=== PATIENT | female | born 1945 | race Caucasian/White ===

== ENCOUNTER 2017-04-08 14:00 | Inpatient (IN) | payer MEDICARE, MEDICAID ==
[~2017-04-08] VITALS: Ht 162.6 cm; Wt 52.6 kg
[~2017-04-08 14:00] MED LIST: AZAT50TA PO; BUPR-51 PO; CALC-15; CHOL20004; CIPR-262 PO; DICY20TA32 PO; DONE10TA11 PO; HYDR-3976 PO; NITR100C PO; OXYB5TAB11 PO; PROP10TA68 PO
--- NOTE | 2017-04-08 14:20 | NUR ---
PT BIBRA FROM SNF TO ER BED 13. HERE FOR DIZZINESS, NAUSEA X TODAY. PT FELL 2 DAYS AGO FACIAL HEMATOMA NOTED. PT IS AAO, STABLE VITALS. AWAITING MD HANSEN.
--- NOTE | 2017-04-08 14:59 | NUR ---
DR WARREN AT BEDSIDE FOR EVAL.
[2017-04-08] MEDS ORDERED: MECLIZINE HCL 25 MG TABLET ONE (15:25)
[2017-04-08] MEDS ORDERED: ONDANSETRON HCL/PF 4 MG/2 ML VIAL ONE ×2 (15:25→16:34)
[2017-04-08] MEDS ORDERED: TDAP [DIPH/PERTUSSIS/TET] 0.5 ML VIAL IM ONE ×2 (15:30→17:15)
[2017-04-08] MEDS ORDERED: ONDANSETRON HCL/PF - ER 4 MG/2 ML VIAL IV ONE ×2 (15:30→16:30)
[2017-04-08] MEDS ORDERED: MECLIZINE HCL 12.5 MG TABLET PO ONE (15:30)
--- NOTE | 2017-04-08 15:30 | NUR ---
PT TO RADIOLOGY FOR HEAD AND C SPINE CT SCAN VIA [facility].
[2017-04-08 15:34] LABS: BASOPHILS % (AUTO) 0.5 % (0.0-2.0); EOSINOPHILS % (AUTO) 0.1 % (0.0-6.0); HEMATOCRIT 37 % (33-45); HEMOGLOBIN 12.5 g/dL (11.5-14.8); LYMPHOCYTES # (AUTO) 1.6 /CMM (0.8-4.8); LYMPHOCYTES % (AUTO) 17.2 % (20.0-44.0); MEAN CORPUSCULAR HEMOGLOBIN 29 PG (26.0-33.0); MEAN CORPUSCULAR HGB CONC 34 g/dl (31.0-36.0); MEAN CORPUSCULAR VOLUME 85 fL (82-100); MONOCYTES # (AUTO) 0.6 /CMM (0.1-1.30); MONOCYTES % (AUTO) 6.3 % (2.0-12.0); NEUTROPHILS # (AUTO) 7.3 /CMM (1.8-8.9); NEUTROPHILS % (AUTO) 75.9 % (43.0-81.0); PLATELET COUNT (AUTO) 284 /CMM (150-450); RDW COEFFICIENT OF VARIATION 13.4 (11.5-15.0); RED BLOOD CELL COUNT(AUTO) 4.34 MIL/uL (4.0-5.2); WHITE BLOOD COUNT (AUTO) 9.5 K/uL (4.3-11.0)
--- NOTE | 2017-04-08 15:35 | NUR ---
PT REFUSING CT SCANS
[2017-04-08 15:40] LABS: CALCIUM, SERUM 6.6 mg/dL (8.5-10.1); CARBON DIOXIDE 29 mmol/L (21-32); CHLORIDE 99 mmol/L (98-107); CREATININE 0.9 mg/dL (0.6-1.3); GLUCOSE 133 mg/dL (74-106); SODIUM SERUM 139 mmol/L (136-145); UREA NITROGEN, BLOOD 7 mg/dL (7-18)
[2017-04-08 15:42] LABS: POTASSIUM 2.2 mmol/L (3.5-5.1)
[2017-04-08 15:46] LABS: INR 1.23 (0.85-1.15)
[2017-04-08] MEDS ORDERED: POTASSIUM CHLORIDE 20 MEQ TAB.PRT.SR PO ONE ×3 (16:00→22:15)
[2017-04-08] MEDS ORDERED: QUET25TA PO (16:14)
[2017-04-08] MEDS ORDERED: CHOL200026 PO (16:14)
[2017-04-08] MEDS ORDERED: PANT40TA4 PO (16:14)
[2017-04-08] MEDS ORDERED: ONDA4TAB5 PO (16:14)
[2017-04-08] MEDS ORDERED: MECL-102 PO (16:14)
[2017-04-08] MEDS ORDERED: MEMA28CA PO (16:14)
[2017-04-08] MEDS ORDERED: AMLO5TAB2 PO (16:14)
[2017-04-08] MEDS ORDERED: LOSA50TA21 PO (16:14)
[2017-04-08] MEDS ORDERED: POTA10CA43 PO (16:14)
[2017-04-08] MEDS ORDERED: Magnesium 1GM/D5W 100ML PREMIX 200 ML IV ONE (16:34)
--- NOTE | 2017-04-08 16:37 | NUR ---
CALLED NURSING SUP. FOR TELE BED
[2017-04-08] MEDS: Magnesium 1GM/D5W 100ML PREMIX 100 ML IV SCH ×4 (16:40→19:56)
--- NOTE | 2017-04-08 17:02 | NUR ---
CALLED DR.JOSEF WALTERS, TRANSFERRED CALL TO DR. WARREN
--- NOTE | 2017-04-08 17:04 | NUR ---
TELE [id number]
[2017-04-08] MEDS: POTASSIUM CL. PREMIX PERIPHER. 50 ML IV SCH ×4 (17:16→21:45)
--- NOTE | 2017-04-08 17:23 | NUR ---
REPORT GIVEN TO KAMILAH. PT AWAITING TRANSFER TO FLOOR.
[2017-04-08 18:00] VITALS: BP 123/79
--- NOTE | 2017-04-08 18:00 | NUR ---
RECEIVED PATIENT FROM ER IN STABLE CONDITION, VS WNL. PATIENT A/OX3. NO ACUTE DISTRESS, NO SOB NOTED. IV SITE ON RIGHT FOREARM AND RIGHT WRIST, INTACT AND PATENT, RUNNING MAGNESIUM AND POTASSIUM. KEPT PATIENT SAFE AND COMFORTABLE. BED IN LOW/LOCKED POSITION, SIDERAILS UPX2, SEMIFOWLERS, CALL LIGHT IN REACH. WILL CONTINUE TO MONITOR ACCORDINGLY.
[2017-04-08] MEDS ORDERED: Magnesium 1GM/D5W 100ML PREMIX 100 ML IV ONE (18:06)
--- NOTE | 2017-04-08 19:00 | NUR ---
RN CLOSING NOTES PATIENT RESTING IN BED. NO ACUTE DISTRESS, NO SOB NOTED. ALL NEEDS ATTENDED AND PROVIDED. KEPT PATIENT SAFE AND COMFORTABLE. BED IN LOW/LOCKED POSITION. SIDERAILS UPX2. CALL LIGHT IN REACH. ENDORSED TO NIGHT RN FOR MONICA.
--- NOTE | 2017-04-08 19:40 | NUR ---
CLERICAL SUPPORT OPENING NOTES ADMITTED 71 YO FEMALE PT ALERT, AWAKE, VERBALLY RESPONSIVE.ON ROOM AIR, RESPIRATIONS EVEN, UNLABORED,NO APPARENT DISTRESS NOTED. DENIES ANY PAIN OR DISCOMFORT AT THIS TIME. IV SITE RT FA INTACT, PATENT, RECEIVING MAGNESIUM AT THIS TIME.CALL LIGHT WITHIN REACH. BED LOCKED IN LOWEST POSITION.ATTENDED ALL NEEDS. WILL CONTINUE TO MONITOR ACCORDINGLY.
[2017-04-08 20:00] VITALS: BP_SYST 92; BP_SYST 98; BP_DIAS 46; BP_DIAS 66
[2017-04-08 20:11] VITALS: BP 123/79
[2017-04-08] MEDS ORDERED: Potassium Chloride 40 MEQ in IV NS 0.9% 1,000 ML IV SCH (21:30)
[2017-04-08] MEDS ORDERED: ONDANSETRON HCL/PF 4 MG/2 ML VIAL IV PRN (21:30)
[2017-04-08] MEDS ORDERED: ACETAMINOPHEN 650 MG/20.3 ML UDC NG PRN (21:30)
[2017-04-08] MEDS ORDERED: ZOLPIDEM TARTRATE 10 MG TABLET ONE (22:12)
[2017-04-08] MEDS ORDERED: QUETIAPINE FUMARATE 25 MG TABLET ONE (22:13)
[2017-04-08] MEDS ORDERED: MAGNESIUM OXIDE 400 MG TABLET ONE (22:14)
[2017-04-08] MEDS: MAGNESIUM OXIDE 400 MG TABLET PO SCH (22:19)
[2017-04-08] MEDS: POTASSIUM CHLORIDE 20 MEQ TAB.PRT.SR PO SCH (22:19)
[2017-04-08] MEDS: ZOLPIDEM TARTRATE 10 MG TABLET PO PRN (22:19)
[2017-04-08] MEDS: QUETIAPINE FUMARATE 25 MG TABLET PO SCH (22:19)
[2017-04-08] MEDS ORDERED: IV PREMIX NS +20MEQ KCL 1 L IV ONE (22:53)
[2017-04-08] MEDS ORDERED: Potassium Chloride 20 MEQ in IV NS 0.9% 1,000 ML IV PRN (23:00)
[2017-04-09] VITALS (7 sets, daily range): BP systolic 119–147; BP diastolic 68–88
[2017-04-09] MEDS ORDERED: HYDROCODONE/APAP 5/325MG 1 EACH TABLET ONE (01:33)
[2017-04-09] MEDS: HYDROCODONE/APAP 5/325MG 1 EACH TABLET PO PRN ×2 (01:42→23:10)
--- NOTE | 2017-04-09 06:44 | NUR ---
SHOCHET CLOSING NOTES PT IN BED, RESTING COMFORTABLY, ON ROOM AIR, NO RESPIRATORY DISTRESS NOTED. DENIES ANY PAIN OR DISCOMFORT AT THIS TIME. IV SITE INTACT,PATENT ON KCL 20 MEQ IN NS 0.95 AT 70 ML/HR. CALL LIGHT WITHIN REACH, BED LOCKED IN LOWEST POSITION.KEPT CLEAN AND COMFORTABLE, ATTENDED ALL NEEDS. WILL CONTINUE TO MONITOR ACCORDINGLY.
[2017-04-09 07:41] LABS: BASOPHILS % (AUTO) 0.3 % (0.0-2.0); EOSINOPHILS # (AUTO) 0.1 /CMM (0.0-0.7); EOSINOPHILS % (AUTO) 0.6 % (0.0-6.0); HEMATOCRIT 34 % (33-45); HEMOGLOBIN 11.9 g/dL (11.5-14.8); LYMPHOCYTES # (AUTO) 1.8 /CMM (0.8-4.8); MEAN CORPUSCULAR HEMOGLOBIN 30 PG (26.0-33.0); MEAN CORPUSCULAR HGB CONC 35 g/dl (31.0-36.0); MEAN CORPUSCULAR VOLUME 87 fL (82-100); MONOCYTES # (AUTO) 0.8 /CMM (0.1-1.30); MONOCYTES % (AUTO) 9.5 % (2.0-12.0); NEUTROPHILS # (AUTO) 6.2 /CMM (1.8-8.9); NEUTROPHILS % (AUTO) 69.6 % (43.0-81.0); PLATELET COUNT (AUTO) 243 /CMM (150-450); RDW COEFFICIENT OF VARIATION 15.1 (11.5-15.0); RED BLOOD CELL COUNT(AUTO) 3.91 MIL/uL (4.0-5.2); WHITE BLOOD COUNT (AUTO) 8.9 K/uL (4.3-11.0)
[2017-04-09 08:05] LABS: ALANINE AMINOTRANSFERASE 18 U/L (12-78); ALBUMIN 3.2 g/dL (3.4-5.0); ALKALINE PHOSPHATASE 43 U/L (46-116); ASPARTATE AMINOTRANSFERASE 15 U/L (15-37); BILIRUBIN,TOTAL 0.3 mg/dL (0.2-1.0); CALCIUM, SERUM 7.2 mg/dL (8.5-10.1); CARBON DIOXIDE 26 mmol/L (21-32); CHLORIDE 107 mmol/L (98-107); CREATININE 0.8 mg/dL (0.6-1.3); GLUCOSE 146 mg/dL (74-106); MAGNESIUM 1.5 mg/dL (1.8-2.4); POTASSIUM 3.1 mmol/L (3.5-5.1); SODIUM SERUM 143 mmol/L (136-145); TOTAL PROTEIN, SERUM 6.8 g/dL (6.4-8.2); UREA NITROGEN, BLOOD 5 mg/dL (7-18)
[2017-04-09 08:06] LABS: TROPONIN I < 0.017 ng/mL (0.00-0.056)
--- NOTE | 2017-04-09 08:30 | NUR ---
DR. Jonna WALTERS CALLED EARLY REGARDING LOW K AND MG LEVELS WELL DIARRHEA.ORDERS RECEIVED.
[2017-04-09] MEDS: ASPIRIN 81 MG TAB.CHEW PO SCH ×2 (09:00→11:08)
[2017-04-09] MEDS: POTASSIUM CHLORIDE 20 MEQ TAB.PRT.SR PO SCH ×2 (09:00→17:00)
[2017-04-09] MEDS: MAGNESIUM OXIDE 400 MG TABLET PO SCH ×2 (11:02→18:25)
[2017-04-09] MEDS: BUPROPION XL 150 MG TAB.ER.24 PO SCH (11:02)
[2017-04-09] MEDS: PANTOPRAZOLE 40 MG TABLET.DR PO SCH (11:02)
[2017-04-09] MEDS ORDERED: DIPHENOXYLATE HCL/ATROP SULF 1 UDTAB TABLET PO PRN (12:30)
[2017-04-09] MEDS: Magnesium 1GM/D5W 100ML PREMIX 100 ML IV SCH ×2 (13:02→14:44)
[2017-04-09] MEDS: POTASSIUM CL. PREMIX PERIPHER. 50 ML IV SCH ×4 (16:09→21:38)
--- NOTE | 2017-04-09 18:30 | NUR ---
HAD 4 DIARRHEA STOOLS WITH CROHN,S DZ.HAD LOMOTIL X1.KCL IV AND MG. GIVEN.PT. REFUSING ORAL K.
--- NOTE | 2017-04-09 19:30 | NUR ---
RN NOTE RECEIVED PATIENT IN BED, ALERT AND ORIENTED X 2, WITH FORGETFULNESS. DENIES PAIN, NO SOB, BREATHING EVEN AND UNLABORED, NO DIZZINESS AT THIS TIME. RECEIVING IV ORDERED VIA RFA PERIPHERAL LINE G#20. ALL PATIENT'S NEEDS ATTENDED TO AT THIS TIME. CALL LIGHT PLACED WITHIN EASY REACH. BED LOCKED IN PLACE, PLACED IN LOW POSITION. WILL CONTINUE TO MONITOR PATIENT.
[2017-04-09] MEDS ORDERED: POTASSIUM PHOSPHATE IV SCH (20:00)
[2017-04-09] MEDS ORDERED: D5W IV SCH (20:00)
--- NOTE | 2017-04-09 20:00 | NUR ---
RN NOTE NOTED IV PERIPHERAL LINE TO BE DISLODGED. STARTED A NEW IV PERIPHERAL LINE G#22 ON RFA, FLUSHING WELL WITH NS, PATENT AND INTACT. WILL CONTINUE TO MONITOR PATIENT.
[2017-04-09] MEDS: QUETIAPINE FUMARATE 25 MG TABLET PO SCH (21:33)
[2017-04-09] MEDS: POTASSIUM PHOSPHATE MM 7.5 MMOL in IV D5W 100 ML IV SCH (22:52)
[2017-04-10] VITALS: BP 144/77
[2017-04-10] MEDS: POTASSIUM PHOSPHATE MM 7.5 MMOL in IV D5W 100 ML IV SCH ×2
[2017-04-10] MEDS ORDERED: MECLIZINE HCL 12.5 MG TABLET ONE (01:53)
[2017-04-10] MEDS: MECLIZINE HCL 12.5 MG TABLET PO PRN ×3 (01:55→20:22)
[2017-04-10 04:00] VITALS: BP 137/80
--- NOTE | 2017-04-10 07:15 | NUR ---
RN CLOSING NOTE PATIENT IN BED, ALERT AND ORIENTED X 2-3, VERBALLY RESPONSIVE, NO SOB NOTED, BREATHING EVEN AND UNLABORED, NO C/O PAIN AT THIS TIME AND IS IN NO ACUTE DISTRESS. ALL PATIENT'S NEEDS ATTENDED TO, BED PLACED IN LOW POSITION AND LOCKED IN PLACE. KEPT PATIENT SAFE AND DRY, CLEAN AND COMFORTABLE. PATIENT UNDER TELEMETRY MONITORING WITH SR @ 74BPM. WILL ENDORSE TO AM SHIFT NURSE FOR CONTINUITY OF CARE.
--- NOTE | 2017-04-10 07:20 | NUR ---
RN NOTES PATIENT RESTING IN BED. NONLABORED BREATHING NOTED ON ROOM AIR, NO SIGNS OF DISTRESS NOTED, PATIENT DENIES PAIN AT THE MOMENT. IV SITE ON RIGHT FOREARM PATENT AND INTACT. PATIENT DENIES DIZZINESS AT THE MOMENT. PATIENT SINUS ON TELE MONITOR WITH HR IN THE 70S . BED IN LOWEST LOCKED POSITION. CALL LIGHT WITHIN REACH.WILL CONTINUE TO MONITOR
[2017-04-10 08:00] VITALS: BP 133/75
[2017-04-10] MEDS: PANTOPRAZOLE 40 MG TABLET.DR PO SCH (08:28)
[2017-04-10] MEDS: BUPROPION XL 150 MG TAB.ER.24 PO SCH (08:29)
[2017-04-10 08:50] LABS: BASOPHILS % (AUTO) 0.4 % (0.0-2.0); EOSINOPHILS # (AUTO) 0.1 /CMM (0.0-0.7); EOSINOPHILS % (AUTO) 0.7 % (0.0-6.0); HEMATOCRIT 35 % (33-45); HEMOGLOBIN 12.3 g/dL (11.5-14.8); LYMPHOCYTES # (AUTO) 1.9 /CMM (0.8-4.8); LYMPHOCYTES % (AUTO) 20.6 % (20.0-44.0); MEAN CORPUSCULAR HEMOGLOBIN 30 PG (26.0-33.0); MEAN CORPUSCULAR HGB CONC 35 g/dl (31.0-36.0); MEAN CORPUSCULAR VOLUME 88 fL (82-100); MONOCYTES # (AUTO) 0.8 /CMM (0.1-1.30); MONOCYTES % (AUTO) 9.1 % (2.0-12.0); NEUTROPHILS # (AUTO) 6.4 /CMM (1.8-8.9); NEUTROPHILS % (AUTO) 69.2 % (43.0-81.0); PLATELET COUNT (AUTO) 219 /CMM (150-450); RDW COEFFICIENT OF VARIATION 14.7 (11.5-15.0); RED BLOOD CELL COUNT(AUTO) 4.04 MIL/uL (4.0-5.2); WHITE BLOOD COUNT (AUTO) 9.2 K/uL (4.3-11.0)
[2017-04-10 09:03] LABS: CALCIUM, SERUM 7.4 mg/dL (8.5-10.1); CARBON DIOXIDE 28 mmol/L (21-32); CHLORIDE 100 mmol/L (98-107); CREATININE 0.7 mg/dL (0.6-1.3); GLUCOSE 116 mg/dL (74-106); MAGNESIUM 1.6 mg/dL (1.8-2.4); PHOSPHORUS 2.9 mg/dL (2.5-4.9); POTASSIUM 3.5 mmol/L (3.5-5.1); SODIUM SERUM 139 mmol/L (136-145); UREA NITROGEN, BLOOD 15 mg/dL (7-18)
[2017-04-10] MEDS: MAGNESIUM OXIDE 400 MG TABLET PO SCH ×2 (10:08→16:47)
[2017-04-10] MEDS: ASPIRIN 81 MG TAB.CHEW PO SCH (10:08)
[2017-04-10 12:00] VITALS: BP_SYST 107; BP_SYST 131; BP_SYST 136; BP_DIAS 69; BP_DIAS 79; BP_DIAS 84
--- NOTE | 2017-04-10 12:33 | NUR ---
RN NOTES: PATIENT REFUSED PO POTASSIUM MEDICATION, BENEFITS AND RISKS EXPLAINED TO PATIENT MULTIPLE TIMES. SPOKE TO PHARMACY ABOUT CHANGING THE MEDICATION TO POWDER FORM
[2017-04-10 16:00] VITALS: BP 125/76
[2017-04-10] MEDS: POTASSIUM CHLORIDE 20 MEQ POWDER PACKET PO SCH (16:42)
--- NOTE | 2017-04-10 16:42 | NUR ---
RN NOTES: PATIENT REFUSED POTASSIUM, SPIT OUT MEDICATION, MEDICATION WASTED, BENEFITS AND RISKS EXPLAINED TO PATIENT
--- NOTE | 2017-04-10 17:00 | NUR ---
RN NOTES: CONTACTED DR WALTERS AND LEFT A MESSAGE REGARDING MECLIZINE. AWAITING 'S CALL REGARDING MAGNESIUM REPLACEMENT WELL. PER JHON FROM [facility], DR WALTERS TO ORDER REPLACEMENT
--- NOTE | 2017-04-10 19:30 | NUR ---
RN NOTES PATIENT RESTING IN BED. PATIENT AOX2-3, NONLABORED BREATHING NOTED ON ROOM AIR, NO SIGNS OF DISTRESS NOTED, PATIENT DENIES PAIN AT THE MOMENT. IV SITE ON RIGHT FOREARM PATENT AND INTACT. PATIENT DENIES DIZZINESS AT THE MOMENT. PATIENT SINUS ON TELE MONITOR WITH HR IN THE 90S . BED IN LOWEST LOCKED POSITION. CALL LIGHT WITHIN REACH.ENDORSED TO NEXT SHIFT DURING SHIFT, NEURO CHECKS DONE Q 2 HOURS, NO CHANGE IN LOC, PATIENT PERRLA, NO ONSET OF WEAKNESS NOTED
--- NOTE | 2017-04-10 19:30 | NUR ---
RN NOTES PATIENT RESTING IN BED. NONLABORED BREATHING NOTED ON ROOM AIR, NO SIGNS OF DISTRESS NOTED, PATIENT DENIES PAIN AT THE MOMENT. IV SITE ON RIGHT FOREARM PATENT AND INTACT. PATIENT DENIES DIZZINESS AT THE MOMENT. PATIENT SINUS ON TELE MONITOR WITH HR IN THE 90S . BED IN LOWEST LOCKED POSITION. CALL LIGHT WITHIN REACH.ENDORSED TO NEXT SHIFT
[2017-04-10 20:00] VITALS: BP_SYST 110; BP_SYST 134; BP_SYST 140; BP_DIAS 64; BP_DIAS 70; BP_DIAS 81
--- NOTE | 2017-04-10 20:25 | NUR ---
TELE HOT DIP TINNING SUPERVISOR NOTES C/O DIZZINESS MECLIZINE PO GIVEN ORDERED. PT SEEN IN BED EATING WHILE LYING IN BED , SPOKE OT HER THAT SHE NEEDS TO BE SIT UP TO PREVENT FROM ASPIRATION AND CHOKING BUT PT STATED AND INSIST THAT'S THE WAY SHE'S EATING. NO N/V NOTED AT THIS TIME. SITTER AT THE BEDSIDE FOR SAFETY. WILL CONTINUE TO MONITOR.
[2017-04-10] MEDS: ZOLPIDEM TARTRATE 10 MG TABLET PO PRN (21:50)
[2017-04-10] MEDS: QUETIAPINE FUMARATE 25 MG TABLET PO SCH (21:51)
--- NOTE | 2017-04-10 21:55 | NUR ---
BLUE LINE TRIMMER/NOTES SEROQUEL GIVEN PO ORDERED , AND AMBIEN PER PT REQUESTED. SAFETY PRECAUTION , SITTER AT THE BEDSIDE.
--- NOTE | 2017-04-10 23:00 | NUR ---
CARE CENTER MANAGER/NOTES PT CALLED AND ASKING WHERE IS HER SLEEP MEDICATION., I SPOKE TO HER AND EXPLAINED TO HER THAT I ALREADY GIVEN WITH HER SEROQUEL AND I TOLD HER THAT I TOLD YOU WHAT KIND OF MEDICATION THAT I ADMINISTERED AND THE PURPOSE OF IT AND YOU UNDERSTOOD EARLIER. PT STARTED SCREAMING AND POINTING THAT I DID NOT GAVE IT TO HER I SHOWED THE WOW TO HER WHILE CHARGE NURSE GUSTAVO AT THE BEDSIDE WHAT TIME I SCANNED THE MEDICATION AND SITBETH IS THE WITNESS THAT I GAVE IT TO HER . SHE STOP TALKING THE LYING DOWN ON HER BED, KEPT HER WARM AND COMFORTABLE AT ALL TIMES. SITTER AT THE BEDSIDE.
--- NOTE | 2017-04-11 03:07 | NUR ---
ATLASSIAN ADMINISTRATOR/NOTES PT SLEEPING COMFORTABLY IN BED WITHOUT ANY ACUTE DISTRESS NOTED. KEPT HER WARM AND COMFORTABLE AT ALL TIME,.WILL CONTINUE T MONITOR.
--- NOTE | 2017-04-11 07:15 | NUR ---
SOLE MOLDER/OPENING NOTES 1:1 SITTER AT BEDSIDE. RECEIVED PT. IN BED A&OX2-3, PERIODS OF FORGETFULNESS. BREATHING UNLABORED, AND EVENLY ON ROOM AIR. NO S/S OF ACUTE DISTRESS. IV SITE ON RIGHT FOREARM INTACT AND PATENT. BED IS IN LOWEST AND LOCKED POSITION. 2 SIDE RAILS UP, AND INSTRUCTED PT. TO USE CALL LIGHT FOR ASSISTANCE. ALL NEEDS MET. WILL CONTINUE TO ASSESS AND MONITOR.
[2017-04-11] MEDS: PANTOPRAZOLE 40 MG TABLET.DR PO SCH (07:30)
--- NOTE | 2017-04-11 07:40 | NUR ---
TELE SUPERVISOR TUMBLING AND ROLLING CLOSING NOTES PT WOKE UP AND FEELINGS BETTER, SLEPT WELL AFTER SLEEP MEDS GIVEN LAST NIGHT. NO SIGNS OF ANY ACUTE DISTRESS NOTED AND ANY DISCOMFORT. ALL DUE MEDS GIVEN . TELE SR PER MONITOR. STABLE KANDACE THE NIGHT. VITAL SIGNS STABLE ALL NIGHT AND ALL NEEDS MET. MORNING CARE DONE WITH THE HELPED OF JAIDEN Rankin KEPT HER WARM AND COMFORTABLE AT ALL TIMES. PLACE CALL LIGHT AT REACH. SITTER AT THE BEDSIDE FOR SAFETY. ENDORSE TO AM NURSE FOR CONTINUITY OF CARE.
[2017-04-11 08:00] VITALS: BP 148/90
[2017-04-11] MEDS: Magnesium 1GM/D5W 100ML PREMIX 100 ML IV SCH ×2 (08:00→11:40)
[2017-04-11] MEDS ORDERED: IV NS 0.9% 500 ML BAG IV ONE (08:00)
[2017-04-11] MEDS ORDERED: IV NS 0.9% 500 ML IV ONE (08:30)
[2017-04-11] MEDS: BUPROPION XL 150 MG TAB.ER.24 PO SCH (09:00)
[2017-04-11] MEDS: POTASSIUM CL. PREMIX PERIPHER. 50 ML IV SCH ×3 (09:00→15:58)
[2017-04-11] MEDS: MAGNESIUM OXIDE 400 MG TABLET PO SCH ×2 (09:00→16:26)
[2017-04-11] MEDS: POTASSIUM CHLORIDE 20 MEQ POWDER PACKET PO SCH ×2 (09:00→16:24)
[2017-04-11] MEDS: ASPIRIN 81 MG TAB.CHEW PO SCH (09:00)
[2017-04-11 09:02] LABS: CALCIUM, SERUM 8.9 mg/dL (8.5-10.1); CARBON DIOXIDE 30 mmol/L (21-32); CHLORIDE 99 mmol/L (98-107); CREATININE 0.8 mg/dL (0.6-1.3); GLUCOSE 114 mg/dL (74-106); MAGNESIUM 1.5 mg/dL (1.8-2.4); PHOSPHORUS 2.6 mg/dL (2.5-4.9); SODIUM SERUM 138 mmol/L (136-145); UREA NITROGEN, BLOOD 14 mg/dL (7-18)
[2017-04-11 16:00] VITALS: BP 145/82
[2017-04-11] MEDS ORDERED: PNEUMOCOCCAL 23-VAL P-SAC VAC 0.5 ML VIAL SQ ONE (16:30)
[2017-04-11] MEDS ORDERED: FLU VACC QS 2017-18(36MOS+)/PF 0.5 ML DISP.SYRIN IM ONE (16:30)
[2017-04-11] MEDS: MECLIZINE HCL 12.5 MG TABLET PO PRN (18:15)
--- NOTE | 2017-04-11 18:30 | NUR ---
OCCUPATIONAL SAFETY SPECIALIST NOTES 1:1 SITTER AT BEDSIDE. PT. LEFT IN MEDICALLY STABLE CONDITION, A&OX2-3, WITH AMBULANCE CREW. BREATHING UNLABORED, AND EVENLY ON ROOM AIR. NO S/S OF ACUTE DISTRESS. DISCHARGE PACKET AND BELONGINGS LIST CHECKED AND SIGNED. REPORT TO GIVEN VIA PHONE TO PORSCHE AT [facility]. FLU AND PNA VACCINATIONS GIVEN BEFORE DISCHARGE. DISCHARGE PACKET AND REPORT WAS GIVEN TO AMBULANCE. ID BAND, AND IV WAS REMOVED WITHOUT COMPLICATIONS.
== END 2017-04-11 18:49 | DRG 312 ==
LOC: ER 14:03 → TELE 17:27 → MED 04-11 09:36
PROVIDERS: ADMIT Internal Medicine; ATTEND Internal Medicine
DX: I95.1 Orthostatic hypotension (principal); K50.90 Crohn's disease, unspecified, without complications; F03.90 Unspecified dementia, unspecified severity, without behavioral disturbance, psychotic disturbance, mood disturbance, and anxiety; E44.1 Mild protein-calorie malnutrition; E83.39 Other disorders of phosphorus metabolism; E83.42 Hypomagnesemia; Z68.1 Body mass index [BMI] 19.9 or less, adult; W19.XXXA Unspecified fall, initial encounter; E87.6 Hypokalemia; I10 Essential (primary) hypertension; I25.10 Atherosclerotic heart disease of native coronary artery without angina pectoris; G47.00 Insomnia, unspecified; F32.9 Major depressive disorder, single episode, unspecified; M50.10 Cervical disc disorder with radiculopathy, unspecified cervical region; S00.12XA Contusion of left eyelid and periocular area, initial encounter; Y93.9 Activity, unspecified; Y92.89 Other specified places as the place of occurrence of the external cause; J32.9 Chronic sinusitis, unspecified; F99 Mental disorder, not otherwise specified; E86.0 Dehydration
CPT/HCPCS: 36415; 70450-TC; 70486-TC; 72125-TC; 80048-TC; 80053-TC; 83735-TC; 84100-TC; 84484-TC; 85025-TC; 85730-TC; 87081-TC; 90715; 93880-TC; A4606; J2405; J3475; J3480; J3490; J7030; J7040; J7060; J8597; Q2036; Z7610

== ENCOUNTER 2017-10-18 09:15 | Inpatient (IN) | payer MEDICARE, MEDICAID ==
[~2017-10-18] VITALS: Ht 162.6 cm; Wt 56.8 kg
[~2017-10-18 09:15] MED LIST changes: +AMLO5TAB2 PO; -CALC-15; +CHOL200026 PO; -CHOL20004; -CIPR-262 PO; -DICY20TA32 PO; -HYDR-3976 PO; +LOSA50TA21 PO; +MECL-102 PO; +MEMA28CA PO; -NITR100C PO; +ONDA4TAB5 PO; +PANT40TA4 PO; +POTA10CA43 PO; -PROP10TA68 PO; +QUET25TA PO
--- NOTE | 2017-10-18 09:15 | NUR ---
NIVIA FROM [facility], C/O ABD PAIN SINCE 6AM, NO N/V/D, NAD NOTED, VSS, RESP EVEN AND UNLABORED, PT WAS PUT ON MONITOR, WAITING FOR MD HANSEN.
[2017-10-18] MEDS ORDERED: MEMA10TA PO (09:33)
[2017-10-18] MEDS ORDERED: LOSA50TA3 PO (09:33)
[2017-10-18] MEDS ORDERED: MAGN200T4 PO (09:33)
[2017-10-18] MEDS ORDERED: ZOLP10TA2 PO (09:33)
[2017-10-18] MEDS ORDERED: AZAT50TA18 PO (09:33)
[2017-10-18] MEDS ORDERED: ACET-868 PO (09:33)
[2017-10-18] MEDS ORDERED: LORA0.5T PO (09:33)
[2017-10-18] MEDS ORDERED: LOPE2TAB25 PO (09:33)
[2017-10-18] MEDS ORDERED: MESA800T5 PO (09:33)
[2017-10-18] MEDS ORDERED: ONDANSETRON HCL/PF 4 MG/2 ML VIAL ONE (09:56)
[2017-10-18] MEDS ORDERED: MORPHINE SULFATE INJ 4 MG/ML DISP.SYRIN ONE (09:57)
[2017-10-18] MEDS ORDERED: IV NS 0.9% 1,000 ML BAG IV ONE (10:00)
[2017-10-18] MEDS ORDERED: ONDANSETRON HCL/PF 4 MG/2 ML VIAL IVP ONE (10:00)
[2017-10-18] MEDS ORDERED: MORPHINE SULFATE INJ 2 MG/ML DISP.SYRIN IV ONE (10:00)
[2017-10-18 10:23] LABS: BASOPHILS # (AUTO) 0.1 /CMM (0.0-0.2); BASOPHILS % (AUTO) 0.6 % (0.0-2.0); EOSINOPHILS % (AUTO) 0.9 % (0.0-6.0); HEMATOCRIT 40 % (33-45); LYMPHOCYTES # (AUTO) 2.1 /CMM (0.8-4.8); LYMPHOCYTES % (AUTO) 24.4 % (20.0-44.0); MEAN CORPUSCULAR HEMOGLOBIN 28 PG (26.0-33.0); MEAN CORPUSCULAR HGB CONC 33 g/dl (31.0-36.0); MEAN CORPUSCULAR VOLUME 85 fL (82-100); MONOCYTES # (AUTO) 0.6 /CMM (0.1-1.30); MONOCYTES % (AUTO) 6.7 % (2.0-12.0); NEUTROPHILS # (AUTO) 5.7 /CMM (1.8-8.9); NEUTROPHILS % (AUTO) 67.4 % (43.0-81.0); PLATELET COUNT (AUTO) 440 /CMM (150-450); RDW COEFFICIENT OF VARIATION 13.7 (11.5-15.0); RED BLOOD CELL COUNT(AUTO) 4.72 MIL/uL (4.0-5.2); WHITE BLOOD COUNT (AUTO) 8.6 K/uL (4.3-11.0)
[2017-10-18 10:32] LABS: CALCIUM, SERUM 7.7 mg/dL (8.5-10.1); CARBON DIOXIDE 31 mmol/L (21-32); CHLORIDE 99 mmol/L (98-107); CREATININE 0.9 mg/dL (0.6-1.3); GLUCOSE 116 mg/dL (74-106); POTASSIUM 4.6 mmol/L (3.5-5.1); SODIUM SERUM 135 mmol/L (136-145); UREA NITROGEN, BLOOD 14 mg/dL (7-18)
[2017-10-18 10:38] LABS: ALANINE AMINOTRANSFERASE 19 U/L (12-78); ALBUMIN 3.8 g/dL (3.4-5.0); ALKALINE PHOSPHATASE 56 U/L (46-116); ASPARTATE AMINOTRANSFERASE 31 U/L (15-37); BILIRUBIN,DIRECT 0.1 mg/dL (0.0-0.2); BILIRUBIN,TOTAL 0.5 mg/dL (0.2-1.0); LIPASE 205 U/L (73-393); TOTAL PROTEIN, SERUM 8.5 g/dL (6.4-8.2)
--- NOTE | 2017-10-18 11:55 | NUR ---
PAGED DR. CECY WALTERS FOR ADMIT
--- NOTE | 2017-10-18 12:21 | NUR ---
SET UP BLS RIG WITH [facility] - TRIP #[id number] - AWAITING ETA
--- NOTE | 2017-10-18 13:11 | NUR ---
BLS RIG CANCELLED PATIENT REFUSED TRANSPORT BACK TO FACILITY
--- NOTE | 2017-10-18 13:12 | NUR ---
PAGED DR. CECY WALTERS
[2017-10-18 14:00] VITALS: BP 134/74
--- NOTE | 2017-10-18 14:00 | NUR ---
MS WINCH RUNNER NOTE PT ARRIVED TO MED/SURG UNIT VIA GURNEY IN STABLE CONDITION ACCOMPANIED BY 1 ER STAFF IN STABLE CONDITION. PT IS A/O X, AFEBRILE. RESPIRATIONS ARE EVEN AND UNLABORED, NOT IN ANY ACUTE DISTRESS NOTED. PUPILS ARE REACTIVE TO LIGHT. BILATERAL HAND SHAREPOINT WEB DEVELOPER ARE STRONG AND EQUAL. C/O PAIN 5/10 TO ABDOMEN BUT STATES SHE "DOESNT WANT ANYTHING RIGHT NOW." DENIES ANY SOB. C/O NAUSEA, NO VOMITING NOTED. IV TO LAC G20 INTACT, NO INFILTRATION NOTED. DRESSING KEPT CLEAN AND DRY. PT GOT OFF OF THE GURNEY AND TRANSFERRED SELF TO BED. NO DIZZINESS NOTED. ABDOMEN IS ROUND AND SOFT TO RUQ/LUQ AND FIRM UPON PALPATION TO LOWER ABDOMEN. DENIES ANY BLADDER DISCOMFORT. OLD INCISION SCAR NOTED TO TRANSVERSE ABDOMEN, NO S/SX OF INFECTION. SAFETY MEASURES ARE IN PLACE. INSTRUCTED PT TO USE CALL LIGHT WHEN ASSISTANCE IS NEEDED, CALL LIGHT IS LEFT WITHIN REACH. PAGED DR. WALTERS FOR ADMISSION, AWAITING A CALL BACK.
[2017-10-18] MEDS: ONDANSETRON HCL/PF 4 MG/2 ML VIAL IV PRN (15:46)
[2017-10-18] MEDS: IV NS 0.9% 1,000 ML BAG IV PRN (15:46)
[2017-10-18] MEDS: POTASSIUM CHLORIDE 10 MEQ TABLET.SA PO SCH ×2 (16:00→16:14)
--- NOTE | 2017-10-18 16:00 | NUR ---
MS RN NOTES DR. WALTERS CALLED BACK WITH ORDERS TO RESUME HOME MEDICATIONS, CHANGE ZOFRAN TO IV, NS @80ML/HR, SMALL BOWEL FOLLOW UP. ALL ORDERS READ BACK AND VERIFIED.
[2017-10-18] MEDS: MEMANTINE HCL 5 MG TABLET PO SCH ×2 (16:14→16:23)
[2017-10-18] MEDS: MECLIZINE HCL 25 MG TABLET PO SCH (16:14)
[2017-10-18] MEDS: CHOLECALCIFEROL 1,000 UNIT TABLET (VIT D3) PO SCH (16:14)
--- NOTE | 2017-10-18 16:15 | NUR ---
MS RN NOTES RADIOLOGY CAME BY TO P/U PT RE: SMALL BOWEL FOLLOW UP. PT STRONGLY REFUSED. EXPLAINED THE IMPORTANCE OF THE PROCEDURE X3, PT STILL NOTED WITH REFUSAL.
--- NOTE | 2017-10-18 16:23 | NUR ---
MS RN NOTES PATIENT REFUSED TO TAKE NAMENDA AND POTASSIUM. EXPLAINED THE RISKS AND BENEFITS OF BOTH MEDICATIONS X3, PATIENT STILL NOTED WITH REFUSAL. DR. WALTERS MADE AWARE. WILL CONTINUE TO MONITOR THROUGHOUT SHIFT.
[2017-10-18] MEDS: MESALAMINE 400 MG CAP PO SCH (18:05)
--- NOTE | 2017-10-18 18:34 | NUR ---
MS RN CLOSING NOTES NEEDS MET AND ANTICIPATED. PT APPEARS TO BE ALERT, HOWEVER CAN BE FORGETFUL. PT MAY BE NONCOMPLIANT AT TIMES EVEN WHEN EXPLAINING THE IMPORTANCE OF CARE GIVEN AND WHAT IS EXPECTED. PT IS A/O X3, AFEBRILE. RESPIRATIONS ARE EVEN AND UNLABORED, NOT IN ANY ACUTE DISTRESS NOTED. DENIES ANY SOB, PAIN. CONTINUES TO C/O NAUSEA, KEPT HOB SLIGHTLY ELEVATED TO WHERE THE PT FEELS COMFORTABLY. ENCOURAGED TO ELEVATE HOB 90 DEGREES TO PREVENT ANY ASPIRATION AND FROM VOMITING, PT STATED "TOO HIGH." SAFETY MEASURES ARE IN PLACE. CALL LIGHT IS LEFT WITHIN REACH. WILL ENDORSE TO NEXT SHIFT FOR CONTINUITY OF CARE.
--- NOTE | 2017-10-18 19:35 | NUR ---
MS RN OPENING NOTES RECEIVED PT RESTING IN BED IN SEMI RAPP POSITION. PT APPEARS TO BE ALERT, BUT FORGETFUL @ TIMES. PT MAY BE NONCOMPLIANT AT TIMES PER AM REPORT. PT IS A/O X 3, AFEBRILE. RESPIRATIONS ARE EVEN AND UNLABORED, NOT IN ANY ACUTE DISTRESS NOTED. DENIES ANY SOB, PAIN. PT FEELS COMFORTABLY SO FAR BUT HAS HX OF FREQUENT C/O NAUSEA. CONTINENT WITH STAND BY ASSIST. IV ACCESS TO LAC, INTACT PATENT. PT REFUSES IVF @ TIMES. ENCOURAGED & STARTED IVF @ THIS TIME FOR HYDRATION. PT IS NPO EXCEPT MEDS. SAFETY MEASURES ARE IN PLACE. CALL LIGHT IS LEFT WITHIN REACH. WILL MONITOR CLOSELY.
[2017-10-18 20:00] VITALS: BP 134/79
[2017-10-18] MEDS: QUETIAPINE FUMARATE 25 MG TABLET PO SCH (21:07)
[2017-10-18] MEDS: DONEPEZIL 5 MG TABLET PO SCH (21:08)
[2017-10-18] MEDS: AZATHIOPRINE 50 MG TABLET PO SCH (21:08)
[2017-10-18] MEDS: ACETAMINOPHEN 325 MG TABLET PO PRN (21:38)
[2017-10-18] MEDS: ZOLPIDEM TARTRATE 10 MG TABLET PO PRN (21:38)
--- NOTE | 2017-10-18 21:38 | NUR ---
PRN TYLENOL & AMBIEN GIVEN PT ASKED TO TAKE PAIN MEDICINE FOR ABD PAIN, INFORMED THE PT THAT THERE IS ONLY ORDER FOR TYLENOL, SHE AGREED TO TAKE IT, PT DID NOT WANT ME TO CALL MD @ THIS TIME, BUT IF SHE NEEDS MORE PAIN MED THEN PT WANTS ME TO CALL THE MD. PT ALSO WANTED TO TAKE AMBIEN, PRHardeep AMBIEN GIVEN ORDERED. WILL REASSESS FOR THE EFFECTIVENESS.
--- NOTE | 2017-10-18 22:45 | NUR ---
MS RN NOTE PT NOTED TO BE ASLEEP COMFORTABLY @ THIS TIME. NO S/S OF PAIN NOTED @ THIS TIME. IVF RUNNING ORDERED. PT WAS REFUSING TO CONTINUE IVF EARLIER BUT AGREED TO CONTINUE IVF AFTER SPENT TIME ENCOURAGING HER. EXPLAINED RISKS & BENEFITS WELL SINCE PT IS NPO & NEEDS IVF FOR HYDRATION.
[2017-10-19] MEDS: ACETAMINOPHEN 325 MG TABLET PO PRN (04:26)
[2017-10-19] MEDS: LORAZEPAM 0.5 MG TABLET PO PRN ×2 (04:27→19:50)
--- NOTE | 2017-10-19 06:19 | NUR ---
RN NOTES No significant change in condition. Patient slept comfortably. Change of staff at around 00:00, Report given by public administration professor Ady and previous RN. All nursing needs attended. will continue to monitor.
[2017-10-19] MEDS: ONDANSETRON HCL/PF 4 MG/2 ML VIAL IV PRN ×3 (07:10→22:01)
[2017-10-19] MEDS: IV NS 0.9% 1,000 ML BAG IV PRN (07:16)
--- NOTE | 2017-10-19 07:20 | NUR ---
MS RN OPENING NOTE RECEIVED BEDSIDE SBAR REPORT ON THE PATIENT. PATIENT IS A/O X3, AGITATED. PATIENT IS IN BED. BED IS LOCKED IN LOWEST POSITION, SIDE RAILS UP X2, BED ALARM IS ON. PATIENT REPORTS PAIN IN LOW BACK AND ABDOMEN. WILL REPORT TO DR WALTERS. PATIENT'S CHEST RISING EQUALLY/BILATERALLY. ALL NEEDS ARE MET. CALL LIGHT WITHIN REACH. EDUCATED THE PATIENT TO USE THE CALL LIGHT TO CALL FOR ASSISTANCE AND PATIENT VERBALIZED UNDERSTANDING. WILL CONTINUE TO ASSESS/MONITOR THROUGHOUT THE SHIFT.
[2017-10-19 07:33] LABS: CALCIUM, SERUM 7.1 mg/dL (8.5-10.1); CARBON DIOXIDE 26 mmol/L (21-32); CHLORIDE 102 mmol/L (98-107); CREATININE 0.9 mg/dL (0.6-1.3); GLUCOSE 109 mg/dL (74-106); POTASSIUM 3.8 mmol/L (3.5-5.1); SODIUM SERUM 140 mmol/L (136-145); UREA NITROGEN, BLOOD 11 mg/dL (7-18)
[2017-10-19 07:39] LABS: ALANINE AMINOTRANSFERASE 19 U/L (12-78); ALBUMIN 3.3 g/dL (3.4-5.0); ALKALINE PHOSPHATASE 44 U/L (46-116); ASPARTATE AMINOTRANSFERASE 20 U/L (15-37); BILIRUBIN,TOTAL 0.5 mg/dL (0.2-1.0); TOTAL PROTEIN, SERUM 7.2 g/dL (6.4-8.2)
[2017-10-19 07:41] LABS: MAGNESIUM 0.7 mg/dL (1.8-2.4)
[2017-10-19 07:42] LABS: BASOPHILS % (AUTO) 0.3 % (0.0-2.0); EOSINOPHILS % (AUTO) 1.1 % (0.0-6.0); HEMATOCRIT 34 % (33-45); HEMOGLOBIN 11.4 g/dL (11.5-14.8); LYMPHOCYTES # (AUTO) 1.7 /CMM (0.8-4.8); LYMPHOCYTES % (AUTO) 26.3 % (20.0-44.0); MEAN CORPUSCULAR HEMOGLOBIN 29 PG (26.0-33.0); MEAN CORPUSCULAR HGB CONC 34 g/dl (31.0-36.0); MEAN CORPUSCULAR VOLUME 87 fL (82-100); MONOCYTES # (AUTO) 0.5 /CMM (0.1-1.30); MONOCYTES % (AUTO) 7.8 % (2.0-12.0); NEUTROPHILS # (AUTO) 4.1 /CMM (1.8-8.9); NEUTROPHILS % (AUTO) 64.5 % (43.0-81.0); PLATELET COUNT (AUTO) 313 /CMM (150-450); RDW COEFFICIENT OF VARIATION 14.3 (11.5-15.0); RED BLOOD CELL COUNT(AUTO) 3.87 MIL/uL (4.0-5.2); WHITE BLOOD COUNT (AUTO) 6.3 K/uL (4.3-11.0)
--- NOTE | 2017-10-19 07:48 | NUR ---
RECEIVED PHONE CALL FROM THE LAB REPORTING CRITICAL MAGNESIUM LEVEL OF 0.7. CALLED DR WALTERS. RECEIVED A TELEPHONE ORDER FOR MAGNESIUM REPLACEMENT. RN REPORTED PATIENT COMPLAINS OF PAIN. DR WALTERS ORDERED MORPHINE 2MG Q4HRS PRN PAIN. ORDER READ BACK AND VERIFIED. WILL FOLLOW ORDER RECEIVED.
[2017-10-19 08:00] VITALS: BP 132/81
[2017-10-19] MEDS ORDERED: IV NS 0.9% 1,000 ML IV PRN (08:30)
--- NOTE | 2017-10-19 09:12 | NUR ---
PATIENT IS BEING TAKEN FOR BOWEL FOLLOW THROUGH TEST. WILL ADMINISTER MEDICATIONS AFTER THE TEST PER PATIENT'S REQUEST.
[2017-10-19] MEDS ORDERED: DIATR MEGLU/DIATRIZOATE SODIUM 120 ML BOTTLE (GASTROGRAPHIN) ONE (09:25)
--- NOTE | 2017-10-19 09:25 | NUR ---
PATIENT WAS PICKED UP BY X-RAY TECH VIA WHEELCHAIR
--- NOTE | 2017-10-19 10:55 | NUR ---
PATIENT IS IN X-RAY. X-RAY TECH CALLED AND REPORTED PATIENT PRESENTS WITH NAUSEA. WILL ADMINISTER ZOFRAN PRESCRIBED.
--- NOTE | 2017-10-19 10:58 | NUR ---
PATIENT BACK TO THE FLOOR. ZOFRAN ADMINISTERED
[2017-10-19] MEDS: CHOLECALCIFEROL 1,000 UNIT TABLET (VIT D3) PO SCH (11:12)
[2017-10-19] MEDS: LOSARTAN POTASSIUM 50 MG TABLET PO SCH (11:13)
[2017-10-19] MEDS: MAGNESIUM OXIDE 400 MG TABLET PO SCH ×3 (11:13→17:13)
[2017-10-19] MEDS: MEMANTINE HCL 5 MG TABLET PO SCH ×2 (11:14→17:14)
[2017-10-19] MEDS: PANTOPRAZOLE 40 MG TABLET.DR PO SCH (11:14)
[2017-10-19] MEDS: MECLIZINE HCL 25 MG TABLET PO SCH ×3 (11:14→16:06)
[2017-10-19] MEDS: POTASSIUM CHLORIDE 10 MEQ TABLET.SA PO SCH (11:15)
[2017-10-19] MEDS: AMLODIPINE BESYLATE 5 MG TABLET PO SCH (11:15)
[2017-10-19] MEDS: BUPROPION XL 150 MG TAB.ER.24 PO SCH (11:16)
[2017-10-19] MEDS: DONEPEZIL 5 MG TABLET PO SCH ×2 (11:16→21:08)
[2017-10-19] MEDS: MESALAMINE 400 MG CAP PO SCH ×3 (11:38→17:14)
[2017-10-19] MEDS: Magnesium 1GM/D5W 100ML PREMIX 100 ML IV SCH ×4 (11:41→19:44)
[2017-10-19] MEDS: MORPHINE SULFATE INJ 2 MG/ML DISP.SYRIN IV PRN (11:46)
--- NOTE | 2017-10-19 11:47 | NUR ---
PATIENT COMPLAINED OF SEVERE PAIN IN LOWER BACK AND ABDOMEN THAT IS RADIATING TO HER GLUTEAL MUSCLES. MORPHINE ADMINISTERED PRESCRIBED.
[2017-10-19] MEDS: LOPERAMIDE HCL (2 MG CAP) 2 MG CAPSULE PO PRN ×2 (16:07→19:20)
[2017-10-19 16:11] VITALS: BP 125/69
--- NOTE | 2017-10-19 16:21 | NUR ---
ENDORSED TO [place] FOR MONICA
--- NOTE | 2017-10-19 16:30 | NUR ---
received pt. very verbal and accusatory,states not happy about her diarrhea and diet,wants more immodium and solid food.informed pt. that dr. kelly would be in soon.
--- NOTE | 2017-10-19 17:30 | NUR ---
dr. urban kelly here and soft diet ordered and rifampin ordered.still wth mg replacement infusing as iv disconnected freq. for bathroom use.
--- NOTE | 2017-10-19 18:40 | NUR ---
rotational moulding operator ana laura jameson.
[2017-10-19] MEDS: RIFAXIMIN 550 MG TABLET PO SCH (18:54)
[2017-10-19 20:00] VITALS: BP_SYST 122; BP_SYST 131; BP_DIAS 56; BP_DIAS 68
--- NOTE | 2017-10-19 20:00 | NUR ---
MS/RN OPENING NOTES PATIENT OBSERVE UNABLE TO RELAX, VERBALIZED NEEDS, AND REPORTED IMMODIUM IS NEEDED IN TIMELY MANNER DUE TO CROHN, COMPLAINING OF ABDOMINAL PAIN, AND SOME DISCOMFORT, PATIENT REQUESTED TO HAVE SOME JELLO AND LIZA CRACKERS, ABLE TO TOLERTAE, WILL MONITOR, RECEIVED REPORT OF PATIENT, WILL MONITOR AND PROVIDE CARE. CALL LIGHTS WITHIN REACH, BED IN LOCK POSITION,
--- NOTE | 2017-10-19 20:32 | NUR ---
MS/RN OPEN NOTES PATIENT REPORTED ABDOMINAL PAIN,MOANING AND GUARDING , WILL MONITOR PAIN RELIEF AFTER
[2017-10-19] MEDS: QUETIAPINE FUMARATE 25 MG TABLET PO SCH (21:08)
[2017-10-19] MEDS: AZATHIOPRINE 50 MG TABLET PO SCH (21:08)
[2017-10-19] MEDS: ZOLPIDEM TARTRATE 10 MG TABLET PO PRN (21:50)
--- NOTE | 2017-10-19 21:52 | NUR ---
ms/rn notes as needed ambien to help patient sleep was requested.
[2017-10-20] MEDS: LOPERAMIDE HCL (2 MG CAP) 2 MG CAPSULE PO PRN ×4 (00:23→20:33)
--- NOTE | 2017-10-20 06:32 | NUR ---
325-2 MS/RN NOTES PATIENT ALERT, ORIENTED, ABLE TO SLEEP DURING THE NIGHT WITH INTERMITTEDNT NEED TO GO TO BATHROOM DUE TO BM, NEEDED IMMODIUM GIVEN TOLERATED BY PATIENT,PROVIDED FLUIDS,WILL MONITOR FOR ANY CHANGES AND NEED OF PAIN MED, WILL ENDORSE TO AM RN FOR MONICA.
[2017-10-20 07:33] LABS: BASOPHILS % (AUTO) 0.2 % (0.0-2.0); EOSINOPHILS % (AUTO) 1.7 % (0.0-6.0); HEMATOCRIT 35 % (33-45); HEMOGLOBIN 11.6 g/dL (11.5-14.8); LYMPHOCYTES # (AUTO) 1.5 /CMM (0.8-4.8); LYMPHOCYTES % (AUTO) 28.5 % (20.0-44.0); MEAN CORPUSCULAR HEMOGLOBIN 29 PG (26.0-33.0); MEAN CORPUSCULAR HGB CONC 33 g/dl (31.0-36.0); MEAN CORPUSCULAR VOLUME 88 fL (82-100); MONOCYTES # (AUTO) 0.4 /CMM (0.1-1.30); MONOCYTES % (AUTO) 8.4 % (2.0-12.0); NEUTROPHILS # (AUTO) 3.2 /CMM (1.8-8.9); NEUTROPHILS % (AUTO) 61.2 % (43.0-81.0); PLATELET COUNT (AUTO) 338 /CMM (150-450); RDW COEFFICIENT OF VARIATION 14.5 (11.5-15.0); RED BLOOD CELL COUNT(AUTO) 3.98 MIL/uL (4.0-5.2); WHITE BLOOD COUNT (AUTO) 5.3 K/uL (4.3-11.0)
--- NOTE | 2017-10-20 07:45 | NUR ---
MS RN OPENING NOTE RECEIVED PATIENT IN BED, SLEEPING, EASILY AROUSED WITH VERBAL STIMULI, ORIENTED X3. ON ROOM AIR TOLERATING WELL. RESPIRATIONS EVEN AND UNLABORED. IN NO APPARENT DISTRESS OR DISCOMFORT AT THIS TIME. ABLE TO COMMUNICATE NEEDS. PATIENT WITH BRP. LEFT AC 20G IVC IN PLACE, PATIENT REFUSES FLUIDS. DENIES PAIN AND SOB. KEPT CLEAN AND COMFORTABLE, ALL NEEDS ATTENDED, BED IN LOW LOCKED POSITION, SIDE RAILS UP X2, CALL LIGHT WITHIN EASY REACH. WILL CONTINUE TO MONITOR.
[2017-10-20 07:47] LABS: ALANINE AMINOTRANSFERASE 18 U/L (12-78); ALBUMIN 3.3 g/dL (3.4-5.0); ALKALINE PHOSPHATASE 51 U/L (46-116); ASPARTATE AMINOTRANSFERASE 16 U/L (15-37); BILIRUBIN,TOTAL 0.3 mg/dL (0.2-1.0); CALCIUM, SERUM 7.9 mg/dL (8.5-10.1); CARBON DIOXIDE 28 mmol/L (21-32); CHLORIDE 102 mmol/L (98-107); CREATININE 0.9 mg/dL (0.6-1.3); GLUCOSE 139 mg/dL (74-106); MAGNESIUM 1.6 mg/dL (1.8-2.4); POTASSIUM 3.1 mmol/L (3.5-5.1); SODIUM SERUM 139 mmol/L (136-145); TOTAL PROTEIN, SERUM 7.3 g/dL (6.4-8.2); UREA NITROGEN, BLOOD 11 mg/dL (7-18)
[2017-10-20 08:00] VITALS: BP 144/82
[2017-10-20] MEDS: MAGNESIUM OXIDE 400 MG TABLET PO SCH ×3 (08:53→17:08)
[2017-10-20] MEDS: MESALAMINE 400 MG CAP PO SCH ×3 (08:53→17:08)
[2017-10-20] MEDS: POTASSIUM CHLORIDE 10 MEQ TABLET.SA PO SCH (08:54)
[2017-10-20] MEDS: LORAZEPAM 0.5 MG TABLET PO PRN (08:54)
[2017-10-20] MEDS: MECLIZINE HCL 25 MG TABLET PO SCH ×3 (08:54→17:08)
[2017-10-20] MEDS: BUPROPION XL 150 MG TAB.ER.24 PO SCH (08:54)
[2017-10-20] MEDS: LOSARTAN POTASSIUM 50 MG TABLET PO SCH (08:54)
[2017-10-20] MEDS: RIFAXIMIN 550 MG TABLET PO SCH ×2 (08:54→17:08)
[2017-10-20] MEDS: CHOLECALCIFEROL 1,000 UNIT TABLET (VIT D3) PO SCH (08:54)
[2017-10-20] MEDS: AMLODIPINE BESYLATE 5 MG TABLET PO SCH (08:54)
[2017-10-20] MEDS: MEMANTINE HCL 5 MG TABLET PO SCH ×2 (08:55→17:00)
[2017-10-20] MEDS: PANTOPRAZOLE 40 MG TABLET.DR PO SCH (08:56)
[2017-10-20] MEDS: MORPHINE SULFATE INJ 2 MG/ML DISP.SYRIN IV PRN ×3 (13:35→20:40)
[2017-10-20 16:00] VITALS: BP 116/53
[2017-10-20] MEDS: ACETAMINOPHEN 325 MG TABLET PO PRN (17:08)
--- NOTE | 2017-10-20 18:21 | NUR ---
MS RN CLOSING NOTE PATIENT IN BED, ALERT ORIENTED X3. ON ROOM AIR TOLERATING WELL. RESPIRATIONS EVEN AND UNLABORED. IN NO APPARENT DISTRESS OR DISCOMFORT AT THIS TIME. ABLE TO COMMUNICATE NEEDS. PATIENT WITH BRP. LEFT AC 20G IVC IN PLACE, PATENT AND INTACT. PATIENT REFUSES FLUIDS. DENIES PAIN AND SOB. KEPT CLEAN AND COMFORTABLE, ALL NEEDS ATTENDED, BED IN LOW LOCKED POSITION, SIDE RAILS UP X2, CALL LIGHT WITHIN EASY REACH. WILL ENDORSE TO PM NURSE FOR MONICA.
--- NOTE | 2017-10-20 19:31 | NUR ---
MS/RN OPENING NOTES' PATIENT IN BED, RESTING COMFORTABLY IN BED, RESPIRATIONS EVEN AND UNLABORED. VERBALIZE NEEDS AT ALL TIMES, CALL LIGHTS WITHIN REACH, BED IN LOCK POSITION, WILL MONITOR FOR ANY CONCERNS, CALL LIGHTS WITHIN REACH, BED IN LOCK POSITION WILL MONITOR.
[2017-10-20 19:55] VITALS: BP 113/72
[2017-10-20 20:10] VITALS: BP 113/72
--- NOTE | 2017-10-20 20:36 | NUR ---
ms/rn notes PATIENT VERBALIZED THE NEED FOR IMMODIUM NEEDED FORDIARRHEA/CROHNS DISEASE, AND OBSERVE GRIMACE, GUARDING AND REPORTED EXTREME PAIN IN ABDOMEN. WILL ADMINISTER IVP MORPHINE 2MG ORDERED FOR SEVERE PAIN.
[2017-10-20] MEDS: AZATHIOPRINE 50 MG TABLET PO SCH (21:04)
[2017-10-20] MEDS: DONEPEZIL 5 MG TABLET PO SCH (21:04)
[2017-10-20] MEDS: ZOLPIDEM TARTRATE 10 MG TABLET PO PRN (21:04)
[2017-10-20] MEDS: QUETIAPINE FUMARATE 25 MG TABLET PO SCH (21:04)
[2017-10-20] MEDS ORDERED: POTASSIUM CHLORIDE 20 MEQ TAB.PRT.SR PO ONE (22:00)
[2017-10-20] MEDS: Magnesium 1GM/D5W 100ML PREMIX 100 ML IV SCH ×2 (22:11→22:30)
--- NOTE | 2017-10-20 22:31 | NUR ---
MS/RN NOTES DR WALTERS WAS CONTACTED REGARDING PATIENT REFUSAL TO HAVE IV REINSERTED AND UNABLE TO ADMINISTER IV MAGNESIUM. MD MADE AWARE. NO OTHER ORDER BY .
[2017-10-20] MEDS: DICYCLOMINE HCL 10 MG CAPSULE PO SCH (23:58)
[2017-10-21] MEDS: MORPHINE SULFATE INJ 2 MG/ML DISP.SYRIN IV PRN ×3 (02:48→13:06)
[2017-10-21] MEDS: ONDANSETRON HCL/PF 4 MG/2 ML VIAL IV PRN ×3 (02:58→16:14)
[2017-10-21] MEDS: Magnesium 1GM/D5W 100ML PREMIX 100 ML IV SCH ×2 (03:35→04:32)
--- NOTE | 2017-10-21 03:42 | NUR ---
MS/RN NOTES PATIETN AGREED TO HAVE IV FLUIDS AND PER MD ORDER FOR MAGNESIUM IV, REPORTED N/V AND PAIN. AT THIS TIME, HAVING INABILITY TO RELAX, DR WALTERS CAME TO SEE THE PATIENT, DISCUSSED PLAN FOR DISCHARGE ONCE STABLE.
[2017-10-21] MEDS: LORAZEPAM 0.5 MG TABLET PO PRN (03:47)
--- NOTE | 2017-10-21 03:57 | NUR ---
MS/RN NOTES PATIENT HAD ONE EPISODE OF VOMITING, ZOFRAN WAS GIVEN PRIOR
[2017-10-21] MEDS ORDERED: IV NS 0.9% 1,000 ML IV PRN ×2 (05:00)
[2017-10-21] MEDS: DICYCLOMINE HCL 10 MG CAPSULE PO SCH ×2 (07:07→11:55)
--- NOTE | 2017-10-21 07:15 | NUR ---
MS RN OPENING NOTE RECEIVED PATIENT IN BED, SLEEPING, EASILY AROUSED WITH VERBAL STIMULI, ORIENTED X3. ON ROOM AIR TOLERATING WELL. RESPIRATIONS EVEN AND UNLABORED. IN NO APPARENT DISTRESS OR DISCOMFORT AT THIS TIME. ABLE TO COMMUNICATE NEEDS. PATIENT WITH BRP. RIGHT FOREARM 22G IVC IN PLACE WITH FLUIDS RUNNING AT 80ML/HR. DENIES PAIN AND SOB. KEPT CLEAN AND COMFORTABLE, ALL NEEDS ATTENDED, BED IN LOW LOCKED POSITION, SIDE RAILS UP X2, CALL LIGHT WITHIN EASY REACH. WILL CONTINUE TO MONITOR.
--- NOTE | 2017-10-21 07:28 | NUR ---
MS/RN NOTES REPORT GIVEN TO AM RN FOR MONICA, PATIENT RESTING COMFORTABLY, REPORTED STILL IN PAIN W/ N/V EPISODE, DISCUSSED CARE WITH AM RN, PATIENT CALL LIGHTS WITHIN REACH, BED IN LOCK POSITION, HAD BENTYL ORDER BY DR BUENO, WILL MONITOR FOR ANY CHANGES.ABLE TO VERBALIZE NEEDS, HAD BEHAVIOR , UNABLE TO RELAX AND
[2017-10-21 08:00] VITALS: BP 133/67
[2017-10-21] MEDS: PANTOPRAZOLE 40 MG TABLET.DR PO SCH (08:30)
[2017-10-21] MEDS: MESALAMINE 400 MG CAP PO SCH ×3 (08:34→16:15)
[2017-10-21] MEDS: MAGNESIUM OXIDE 400 MG TABLET PO SCH ×3 (08:35→16:14)
[2017-10-21] MEDS: MECLIZINE HCL 25 MG TABLET PO SCH ×3 (08:35→16:15)
[2017-10-21] MEDS: AMLODIPINE BESYLATE 5 MG TABLET PO SCH (08:35)
[2017-10-21] MEDS: RIFAXIMIN 550 MG TABLET PO SCH ×2 (08:36→16:14)
[2017-10-21] MEDS: LOSARTAN POTASSIUM 50 MG TABLET PO SCH (08:36)
[2017-10-21] MEDS: BUPROPION XL 150 MG TAB.ER.24 PO SCH (08:36)
[2017-10-21] MEDS: POTASSIUM CHLORIDE 10 MEQ TABLET.SA PO SCH (08:36)
[2017-10-21] MEDS: CHOLECALCIFEROL 1,000 UNIT TABLET (VIT D3) PO SCH (08:36)
[2017-10-21] MEDS: MEMANTINE HCL 5 MG TABLET PO SCH ×2 (08:37→16:15)
[2017-10-21] MEDS: LOPERAMIDE HCL (2 MG CAP) 2 MG CAPSULE PO PRN (08:37)
[2017-10-21 16:00] VITALS: BP 144/80
--- NOTE | 2017-10-21 17:00 | NUR ---
MS SAMPLE TAKER OPERATOR NOTE DISCHARGE ORDER RECEIVED FROM DR. WALTERS. PATIENT IS GOING BACK TO [facility] VIA AMBULANCE. PATIENT IS MEDICALLY CLEARED, STABLE, VITAL SIGNS STABLE BP 143/80, HR 66, O2SAT 96%, RR 20. ALERT ORIENTED X3. IN NO DISTRESS OR DISCOMFORT AT THIS TIME. ALL DUE MEDICATIONS GIVEN. PRN ZOFRAN WAS GIVEN PRIOR TO DISCHARGE. DISCHARGE INSTRUCTIONS PREPARED VIA [employer]. EDUCATION PROVIDED REGARDING DOCTOR'S INSTRUCTIONS, CURRENT HEALTH CONDITION AND DIAGNOSIS, NEW AND OLD MEDICATIONS. SKIN ASSESSED NO NEW IMPAIRMENTS OBSERVED, PHOTOS TAKEN PLACED IN CHART. VALUABLES CHECKED AND ACCOUNTED FOR . DISCHARGE PAPERWORK SIGNED. IVC REMOVED, TIP INTACT. ID BAND REMOVED. PATIENT LEFT THE FACILITY VIA AMBULANCE AT [id number].
== END 2017-10-21 17:00 | DRG 386 ==
LOC: ER 09:15 → MED 13:39
PROVIDERS: ADMIT Internal Medicine; ATTEND Internal Medicine
DX: K50.012 Crohn's disease of small intestine with intestinal obstruction (principal); E87.1 Hypo-osmolality and hyponatremia; E83.42 Hypomagnesemia; E87.6 Hypokalemia; E83.51 Hypocalcemia; E88.09 Other disorders of plasma-protein metabolism, not elsewhere classified; I10 Essential (primary) hypertension; G89.4 Chronic pain syndrome; F41.9 Anxiety disorder, unspecified; F17.200 Nicotine dependence, unspecified, uncomplicated; F03.90 Unspecified dementia, unspecified severity, without behavioral disturbance, psychotic disturbance, mood disturbance, and anxiety; Z98.1 Arthrodesis status; Z87.440 Personal history of urinary (tract) infections; K21.9 Gastro-esophageal reflux disease without esophagitis; I25.10 Atherosclerotic heart disease of native coronary artery without angina pectoris; M19.90 Unspecified osteoarthritis, unspecified site; R42 Dizziness and giddiness; Z91.19 Patient's noncompliance with other medical treatment and regimen
CPT/HCPCS: 36415; 71045-TC; 74250-TC; 80048-TC; 80053-TC; 80076-TC; 83605-TC; 83690-TC; 83735-TC; 85025-TC; 87081-TC; A4606; J2270; J2405; J3475; J7030; J7500; J8597; Q9963; Z7610